=== PATIENT | male | born 1965 | race Caucasian/White ===

== ENCOUNTER → 2021-10-14 | Outpatient (CLI) | payer BC ==
--- NOTE | 2021-10-14 16:30 | RAD ---
EXAM: Right elbow, 3 views. HISTORY: Pain. COMPARISON: None. FINDINGS: 3 views of the right elbow are obtained. There is no fracture, dislocation or subluxation. There is no joint effusion. There are punctate soft tissue calcifications along the dorsal proximal f orearm. IMPRESSION: No acute osseous finding. Electronically signed by: Genie Vazquez MD (10/14/2021 4:28 PM) [id number]
== END ==
LOC: RAD 16:02
PROVIDERS: ATTEND Orthopaedic Surgery
DX: M79.89 Other specified soft tissue disorders (principal); M25.521 Pain in right elbow
CPT/HCPCS: 73080